=== PATIENT | male | born 1985 | race Two or more races ===

== ENCOUNTER 2024-07-18 16:45 | Inpatient (IN) | payer MEDICAID, OTHER ==
[~2024-07-18] VITALS: Ht 177.8 cm; Wt 91.8 kg
[2024-07-18 17:39] LABS: Alanine Aminotransferase 29 U/L (7-40); Alkaline Phosphatase 103 U/L (46-116); Anion Gap 9 (5-15); Aspartate Aminotransferase 22 U/L (13-40); BUN/Creatinine Ratio 12.7 (10.0-20.0); Bilirubin, Total 0.4 mg/dL (0.2-1.0); Blood Urea Nitrogen 10 mg/dL (9-23); CRP High Sensitivity 0.92 mg/dL (<1.0); Calcium 10.3 mg/dL (8.7-10.4); Carbon Dioxide 26 mmol/L (20-31); Chloride 104 mmol/L (98-107); Glucose 88 mg/dL (74-106); Potassium 4.2 mmol/L (3.5-5.1); Sodium 139 mmol/L (136-145); Total Protein 7.9 g/dL (5.7-8.2)
[2024-07-18 17:53] LABS: Basophils # (auto) 0 10 ^3/uL (0-0.2); Basophils % (auto) 0.6 % (0.0-2.0); Eosinophils # (auto) 0.4 10 ^3/uL (0-0.8); Eosinophils % (auto) 4.7 % (0.0-7.0); Hematocrit 46.9 % (41.0-53.0); Hemoglobin 15.9 g/dL (13.5-17.5); Lymphocytes % (auto) 25.1 % (10.0-50.0); Mean Corpuscular Hemoglobin 30.8 pg (28.0-32.0); Mean Corpuscular Hgb Conc. 33.9 g/dL (32.0-36.0); Mean Corpuscular Volume 90.8 fL (80.0-100.0); Monocytes # (auto) 0.4 10 ^3/uL (0-1.3); Monocytes % (auto) 5.5 % (0.0-12.0); Neutrophils % (auto) 64.1 % (37.0-80.0); Platelet Count (auto) 297 10^3/uL (140-450); Red Blood Cells 5.17 10^6/uL (4.5-5.90); Red Cell Distribution Width 13.9 % (11.8-14.3); White Blood Cell 7.8 10^3/uL (4.4-10.8)
[2024-07-18 18:15] LABS: Albumin 4.8 g/dL (3.2-4.8)
--- NOTE | 2024-07-18 18:36 | ED.PDOC ---
Musculoskeletal HPI Comments PMHx:Denies Any SHx: Denies Any HPI: Poor Historian. 39-year-old male sent from urgent Care for evaluation of bilateral lower extremity cellulitis for at least one-week. Patient states it has been itchy. This started at the dorsal aspect of bilateral toes and then spread upward above his ankle. There is diffuse generalized erythema. Patient states he has his she is sometimes. Denies any pain fever. Denies any recent use of antibiotics in the last three months. Past Medical History: Alcohol abuse currently in rehab. Past Surgical History: Denies any REVIEW OF SYSTEMS: CONSTITUTIONAL: Denies acute: fever, diaphoresis, chills, generalized weakness. HEAD: Denies acute: headache, photophobia Eyes: Denies acute: Double vision, vision loss, eye pain, eye discharge. EARS: Denies acute: tinnitus, hearing loss, ear discharge, ear pain, THROAT: Denies acute: sore throat, swelling, difficulty swallowing , pain with swallowing, change in voice. NECK: Denies acute: neck pain, neck swelling, stiff neck. HEART: Denies acute : chest pain, palpitations, LUNGS: Denies acute: SOB, wheezing, cough, hemoptysis ABDOMEN: Denies acute: abdominal pain, Nausea, Vomiting, diarrhea, melena , hematemesis, hematochezia SKIN: Denies acute: EXTREMITIES: Denies acute: calf pain, numbness, tingling, weakness, denies pain in extremity. Denies acute: Low back pain. Neuro: Denies acute: focal neurological deficit, motor or sensory focal neurological deficit, tremors, seizure like activity, confusion, dizziness, change in mental status, loss of bowel or bladder function, cauda equina like symptoms. : Denies acute: dysuria, hematuria, flank pain, increase in urinary frequency. PSYCH: Denies acute: hallucination, suicidal ideation, homicidal ideation. PHYSICAL EXAM: General: ---smile-----acute distress, awake and alert. Head: normocephalic, atraumatic. Neck: supple, trachea is midline, no swelling. Throat: Normal phonation. Eyes:, no erythema, no purulent discharge, no proptosis, no icterus. Heart: regular rate, regular rhythm, no significant murmur appreciated. Lungs: no apparent respiratory distress, Able to speak in full sentences. No wheezing, no rhonchi, no crackles. No stridors Clear to auscultation bilaterally. Abdomen: non tender to palpation, non distended, soft, no guarding, no rebound, + bowel sounds. Neuro: Awake, Alert, oriented to name, self, situation, follows commands GCS=15. Speech is normal. Skin: no petechia, no purpura, no cyanosis, non-pale, not jaundice. Lower extremities: --no - Pitting edema no deformity, no focal swelling, no calf TTP. Makes eye contact. moves all four extremities. Evaluation of bilateral feet ankles with the area of complaint is. There is noted bilateral erythema diffusely. Pedal pulses palpable. Sensory and motor are present. Patient is neurovascularly intact in the affected extremity. There is noted peeling of skin. Patient denies any history of burn or injury or trauma. Face: no apparent facial droop. Ambulating in the ED independently. Pedal pulses are palpable. ED COURSE: Chief Complaint: Cellulitis Time Seen by MD: 18:30 Reviewed Notes: Nurses Notes, Allergies Allergies: Coded Allergies: Penicillins (Verified Allergy, Unknown, 07/18/24) Information Source: Patient Mode of Arrival: Ambulatory Location: Bilateral (pedals) Past Medical History PAST MEDICAL HISTORY: Denies Surgical History: Denies all surgeries Family History Family History: Reviewed,noncontributory to illness, Unknown Social History Smoker: Non-Smoker Alcohol: Sober (25 days) Drugs: Denies Drug Use Lives In: Home Was a procedure done? Was a procedure done?: No Differential Diagnosis EXT Differential Diagnosis: Cellulitis, CHF, Deep Vein Thrombosis, Compartment Syndrome, Fracture, Sprain, Neurovascular injury, Arthritis, Bursitis, Other (Mark Tommie syndrome, toxic shock, severe Staphylococcus scaling infection) X-Ray, Labs, Meds, VS Vital Signs Date Time Temp Pulse Resp B/P (MAP) Pulse Ox O2 Delivery O2 Flow Rate FiO2 07/18/24 19:25 76 18 98 Room Air* 0 21 07/18/24 19:25 98.5 76 18 142/102 (115) 98 98.5 07/18/24 17:38 98.9 75 19 143/96 (112) 100 98.9 Lab Test 07/18/24 17:06 07/18/24 16:56 Range/Units White Blood Count 7.8 4.4-10.8 10^3/uL Red Blood Count 5.17 4.5-5.90 10^6/uL Hemoglobin 15.9 13.5-17.5 g/dL Hematocrit 46.9 41.0-53.0 % Mean Corpuscular Volume 90.8 80.0-100.0 fL Mean Corpuscular Hemoglobin 30.8 28.0-32.0 pg Mean Corpuscular Hemoglobin Concent 33.9 32.0-36.0 g/dL Red Cell Distribution Width 13.9 11.8-14.3 % Platelet Count 297 140-450 10^3/uL Mean Platelet Volume 8.6 6.9-10.8 fL Neutrophils (%) (Auto) 64.1 37.0-80.0 % Lymphocytes (%) (Auto) 25.1 10.0-50.0 % Monocytes (%) (Auto) 5.5 0.0-12.0 % Eosinophils (%) (Auto) 4.7 0.0-7.0 % Basophils (%) (Auto) 0.6 0.0-2.0 % Neutrophils # (Auto) 5.0 1.6-8.6 10 ^3/uL Lymphocytes # (Auto) 2.0 0.4-5.4 10 ^3/uL Monocytes # (Auto) 0.4 0-1.3 10 ^3/uL Eosinophils # (Auto) 0.4 0-0.8 10 ^3/uL Basophils # (Auto) 0 0-0.2 10 ^3/uL Nucleated Red Blood Cells 0.0 % Erythrocyte Sedimentation Rate 21 H 0-20 mm/hr Sodium Level 139 136-145 mmol/L Potassium Level 4.2 3.5-5.1 mmol/L Chloride Level 104 98-107 mmol/L Carbon Dioxide Level 26 20-31 mmol/L Anion Gap 9 5-15 Blood Urea Nitrogen 10 9-23 mg/dL Creatinine 0.79 0.700-1.30 mg/dL Glomerular Filtration Rate Calc 114 >90 mL/min BUN/Creatinine Ratio 12.7 10.0-20.0 Serum Glucose 88 74-106 mg/dL Hemoglobin A1c Pending Calcium Level 10.3 8.7-10.4 mg/dL Magnesium Level Pending Total Bilirubin 0.4 0.2-1.0 mg/dL Aspartate Amino Transferase (AST) 22 13-40 U/L Alanine Aminotransferase (ALT) 29 7-40 U/L Alkaline Phosphatase 103 46-116 U/L Troponin I High Sensitivity Pending C-Reactive Protein High Sensitivity 0.92 <1.0 mg/dL B-Type Natriuretic Peptide 14.40 0-100 pg/mL Total Protein 7.9 5.7-8.2 g/dL Albumin 4.8 3.2-4.8 g/dL Vitamin B12 Level Pending Vitamin D 25-Hydroxy Pending Thyroid Stimulating Hormone (TSH) Pending Lactic Acid Level 0.8 0.4-2.0 mmol/L Current Medications Medications (Trade) Dose Ordered Sig/Mikel Route Start Time Stop Time Status Last Admin Clindamycin Phosphate 50 ml @ 50 mls/hr ONCE ONCE IV 07/18/24 18:45 07/18/24 19:44 DC 07/18/24 19:40 Methylprednisolone Sodium Succinate (Solu Medrol) 125 mg ONCE ONCE IV 07/18/24 18:45 07/18/24 18:46 DC 07/18/24 19:40 Sodium Chloride 1,000 ml @ 1,000 mls/hr Q1H ONCE IV 07/18/24 18:45 07/18/24 19:44 DC 07/18/24 19:39 [place] [id number] Ph: [phone] DIAGNOSTIC IMAGING Diagnostic Imaging Report : [id number] Signed PATIENT: MEGGAN JAMES ACCT: [id number] UNIT: [id number] : 1985 LOC: ER ROOM / BED: / AGE / SEX: 39 / M ADM STATUS: REG ER SERVICE [id number] ORDERING PHYSICIAN: TABATHA MARSHALL DO PROCEDURE(s): BLDVT - BiLat Lower DVT REASON: Redness swelling ORDER NUMBER(s): [id number], ACCESSION NUMBER(s): [id number] BILATERAL LOWER EXTREMITY VENOUS DOPPLER ULTRASOUND CLINICAL HISTORY: Redness swelling TECHNIQUE: Grayscale ultrasound with compression, color Doppler flow imaging with pulsed duplex sonography of the bilateral lower extremity deep venous sy stem from the common femoral veins through the popliteal veins is performed. COMPARISON: None FINDINGS: Right common femoral vein: Negative. Right greater saphenous vein: Negative. Right deep femoral vein: Negative. Right femoral vein: Negative. Right popliteal vein: Negative. Left common femoral vein: Negative. Left greater saphenous vein: Negative. Left deep femoral vein: Negative. Left femoral vein: Negative. Left popliteal vein: Negative. Other: Visualized bilateral popliteal trifurcation and posterior tibial veins demonstrate color flow. Enlarged bilateral inguinal lymph nodes noted. IMPRESSION: No sonographic evidence of deep venous thrombosis in either lower extremity at this time. Inguinal adenopathy. ATED BY: SOTO INMAN MD DICTATED DATE/TIME: 07/18/241920 SIGNED BY: SOTO INMAN MD SIGNED DATE/TIME: 07/18/241920 CC: Time of 1ST Reevaluation: 19:00 Reevaluation 1ST: Unchanged Patient Education/Counseling: Diagnosis, Treatment Family Education/Counseling: No Family Present Comments Patient presented with the above HPI.---bilateral distal leg rash---workup was initiated. patient was found with the above mentioned diagnosis. the following medications were ordered: please refer to order lists of meds and tests obtained by myself Dr. Marshall. Patient ED course and VS have been stabilized. Patient has been reassessed in the ED and remained in a stable condition. Pertinent incidental findings were discussed with the patient and/or family. Patient/family voices understanding and is agreeable with plan. Patient has been observed in the ED adequate length of time to insure improvement/stability. Escalation of care considered: Consideration of escalation to observation or admission Patient was ADMITTED to the medicine team for further evaluation and treatment of their presentation. All the son shows inguinal adenopathy likely consistent with infectious process in the distal extremities. All the reports of any imaging studies that were ordered by myself were reviewed by myself. Departure 1 Departure Time of Disposition: 19:00 Impression: Primary Impression: Bilateral lower leg cellulitis Disposition: ADMITTED INPATIENT Admit to: Tele Condition: Guarded Discharged With: Self Critical Care Note Critical Care Time?: No I personally scribed for TABATHA MARSHALL DO ([email or web address]) on 07/18/24 at 18:36. Electronically submitted by Abraham Ansari ([email or web address]). TABATHA MARSHALL DO Jul 18, 2024 18:36
[2024-07-18 18:53] LABS: Erythrocyte Sedimentation Rate 21 mm/hr (0-20)
--- NOTE | 2024-07-18 19:24 | DVH ---
BILATERAL LOWER EXTREMITY VENOUS DOPPLER ULTRASOUND CLINICAL HISTORY: Redness swelling TECHNIQUE: Grayscale ultrasound with compression, color Doppler flow imaging with pulsed duplex sonog vanessa of the bilateral lower extremity deep venous system from the common femoral veins through the p opliteal veins is performed. COMPARISON: None FINDINGS: Right common femoral vein: Negative. Right greater saphenous vein: Negative. Right deep femoral vein: Negative. Right femoral vein: Negative. Right popliteal vein: Negative. Left common femoral vein: Negative. Left greater saphenous vein: Negative. Left deep femoral vein: Negative. Left femoral vein: Negative. Left popliteal vein: Negative. Other: Visualized bilateral popliteal trifurcation and posterior tibial veins demonstrate color flow. Enlarged bilateral inguinal lymph nodes noted. IMPRESSION: No sonographic evidence of deep venous thrombosis in either lower extremity at this time. Inguinal adenopathy.
[2024-07-18 19:25] VITALS: PULSE 76; RESP 18; O2SAT 98
[2024-07-18] MEDS: SODIUM CHLORIDE 0.9% 1,000 ML IV ONE ×2 (19:39→21:31)
[2024-07-18] MEDS: methylPREDNISolone SOD SUCC 125 MG/2 ML VL IV ONE (19:40)
[2024-07-18] MEDS: CLINDAMYCIN 600MG IV 50 ML IV ONE (19:40)
--- NOTE | 2024-07-18 21:17 | DVHHPRES ---
History of Present Illness Resident Creating Document: RADHA CARTER RESIDENT History of Present Illness Mr. Brooks is a 39-year-old male with past medical history of hypertension, not on any medications, who does not have a PCP, presented to the ER with a chief complaint of bilateral lower extremity rash, swelling and purulent drainage for the past 10 days. Patient recently moved to [facility] in in [place] back and shares a bathroom with 10 other male individuals. Reports noticing bilateral lower extremity toe rash while showering, patient used some antifungal ointment which did not help him. Associated features include itching, later patient reported that the rash progressed to the ankles bilaterally associated with intense pruritus and started to drain on the dorsal surface of bilateral feet. He denied pain in lower extremity. Patient denies fevers, chills, shortness of breath, chest pain, nausea or vomiting. Past medical history: Hypertension Home medications: None Social history: Lives in alcoholic rehab. Smokes vape, previously used cigarettes for the past 10 years, , heavy drinker for the past 10 years - drank 6-12 beers a day, sober for the past 25 days. reports using cocaine PCP: None Patient seen and examined in the ER. Bilateral foot x-ray ordered. IV vanc and cefepime Smoke: <1 pack per day ALCOHOL: heavy Drugs: Cocaine Lives: Other (rehab) Review of Systems Musculoskeletal: foot pain Skin: Rash, Lesions Allergies: Coded Allergies: Penicillins (Verified Allergy, Unknown, 07/18/24) Exam Vital Signs Vital Signs Date Time Temp Pulse Resp B/P (MAP) Pulse Ox O2 Delivery O2 Flow Rate FiO2 07/18/24 19:25 76 18 98 Room Air* 0 21 07/18/24 19:25 98.5 142/102 (115) 98.5 Exam Young male patient lying in bed, in no acute distress General: Overweight, afebrile, palor, mucosae are moist Cardiovascular: Regular S1 and S2. No murmurs, gallops or rubs. No JVD elevation. No pedal edema Respiratory: Normal B/L air entry on room air. Clear lung sounds on auscultation Abdomen: Soft, nontender, nondistended, normoactive bowel sounds, no rebound tenderness, no organomegaly, no masses. Right upper chest has maculopapular rash Genitourinary: Deferred MSK/skin: Mobilizes 4 limbs. Bilateral lower extremity are warm. Petechial rash seen in bilateral feet going towards ankle. Right dorsum of the feet is swollen, erythematous draining purulent substance. Bilateral hands are erythematous. Neurological: No motor, no sensitive deficits, normal speech. Pupils are isocoric and reactive. Psych/Mental Status: A/Ox3 Labs/Xrays Labs Test 07/18/24 17:06 07/18/24 16:56 Range/Units White Blood Count 7.8 4.4-10.8 10^3/uL Red Blood Count 5.17 4.5-5.90 10^6/uL Hemoglobin 15.9 13.5-17.5 g/dL Hematocrit 46.9 41.0-53.0 % Mean Corpuscular Volume 90.8 80.0-100.0 fL Mean Corpuscular Hemoglobin 30.8 28.0-32.0 pg Mean Corpuscular Hemoglobin Concent 33.9 32.0-36.0 g/dL Red Cell Distribution Width 13.9 11.8-14.3 % Platelet Count 297 140-450 10^3/uL Mean Platelet Volume 8.6 6.9-10.8 fL Neutrophils (%) (Auto) 64.1 37.0-80.0 % Lymphocytes (%) (Auto) 25.1 10.0-50.0 % Monocytes (%) (Auto) 5.5 0.0-12.0 % Eosinophils (%) (Auto) 4.7 0.0-7.0 % Basophils (%) (Auto) 0.6 0.0-2.0 % Neutrophils # (Auto) 5.0 1.6-8.6 10 ^3/uL Lymphocytes # (Auto) 2.0 0.4-5.4 10 ^3/uL Monocytes # (Auto) 0.4 0-1.3 10 ^3/uL Eosinophils # (Auto) 0.4 0-0.8 10 ^3/uL Basophils # (Auto) 0 0-0.2 10 ^3/uL Nucleated Red Blood Cells 0.0 % Erythrocyte Sedimentation Rate 21 H 0-20 mm/hr Sodium Level 139 136-145 mmol/L Potassium Level 4.2 3.5-5.1 mmol/L Chloride Level 104 98-107 mmol/L Carbon Dioxide Level 26 20-31 mmol/L Anion Gap 9 5-15 Blood Urea Nitrogen 10 9-23 mg/dL Creatinine 0.79 0.700-1.30 mg/dL Glomerular Filtration Rate Calc 114 >90 mL/min BUN/Creatinine Ratio 12.7 10.0-20.0 Serum Glucose 88 74-106 mg/dL Calcium Level 10.3 8.7-10.4 mg/dL Total Bilirubin 0.4 0.2-1.0 mg/dL Aspartate Amino Transferase (AST) 22 13-40 U/L Alanine Aminotransferase (ALT) 29 7-40 U/L Alkaline Phosphatase 103 46-116 U/L C-Reactive Protein High Sensitivity 0.92 <1.0 mg/dL B-Type Natriuretic Peptide 14.40 0-100 pg/mL Total Protein 7.9 5.7-8.2 g/dL Albumin 4.8 3.2-4.8 g/dL Lactic Acid Level 0.8 0.4-2.0 mmol/L Assessment/Plan Assessment/Plan RLE purulent celluliltis Petechial rash Chronic Alcoholic dependence Nicotine dependence Vitamin-D deficiency Left foot x-ray shows No acute fracture or dislocation. Mild diffuse soft tissue edema. Left foot demonstrates a small inferior calcaneal enthesophyte. No radiopaque foreign objects. No significant degenerative changes. Right foot x-ray shows Unremarkable radiographs of the right foot. Swelling. Lower Extremity Doppler unremarkable for DVT Lower extremity arterial ultrasound shows No hemodynamically significant stenoses or occlusions identified. Liver ultrasound unremarkable Plan: IV fluids, IV cefepime, IV vancomycin starting 07/18 Wound care, wound consultation, podiatry consultation pending HIV, hepatitis panel pending given history of drug use Thiamine and folic acid supplemented CAROLYNE panel pending Vitamin-D supplemented loan services professional consulted for the need of PCP Lovenox 40 mg sc daily Plan discussed with patient in which all questions have been answered Goals of care discussed for more than 20 minutes, full code status Case discussed with Dr. Sanford Plan discussed with: Patient My Orders Orders - RADHA CARTER RESIDENT Procedure Category Date Status Time Admit ADMIT 07/18/24 Transmitted 20:56 Electrocardigram EKG 07/18/24 Transmitted 20:56 Complete Blood Count LAB 07/19/24 Verified 04:00 Comprehensive LAB 07/19/24 Verified Metabolic Panel 04:00 Drug Screen LAB 07/18/24 Transmitted 20:56 Hemoglobin A1c LAB 07/18/24 Verified 20:56 Magnesium LAB 07/18/24 Verified 20:56 PTPTT LAB 07/18/24 Verified 20:56 Thyroid Stimulating LAB 07/18/24 Verified Hormone 20:56 Urinalysis LAB 07/18/24 Verified 20:56 Vitamin B12 LAB 07/18/24 Verified 20:56 Vitamin D, 25-Hydroxy LAB 07/18/24 Verified 20:56 Blood Alcohol LAB 07/18/24 Transmitted 20:56 Bilat Low Ext Art US 07/18/24 Verified Duplex 20:56 B-Type Natriuretic LAB 07/18/24 Transmitted Peptide 20:56 Troponin-I Hs LAB 07/18/24 Transmitted 20:56 Lactic Acid W/ Reflex LAB 07/18/24 Transmitted Order 20:56 *Podiatry Consult CONS 07/18/24 Verified Musson(Dvmg) 20:56 * Wound Consult CONS 07/18/24 Verified Wound Culture W/ Gs CLAYTON 07/18/24 Transmitted 20:56 Cleanse Wound With Ns KACIE 07/18/24 Verified 20:56 Cleanse Wound W/ KACIE 07/18/24 Verified Sterile Gauze 20:56 NS PHA 07/18/24 Verified 21:00 Carolyne; Direct LAB 07/18/24 Transmitted 20:56 LIVER US 07/18/24 Verified 20:56 Uric Acid LAB 07/18/24 Transmitted 20:56 Comprehensive LAB 07/18/24 Transmitted Hepatitis Panel 20:56 Acute Hepatitis Panel LAB 07/18/24 Transmitted 20:56 Hiv 1&2 Antibody LAB 07/18/24 Transmitted 20:56 Date of Service: Jul 18, 2024 Billing Provider: ABDELRAHMAN SANFORD MD Common Visit Codes: [id number] INP/OBS CARE (HIGH) RADHA CARTER RESIDENT Jul 18, 2024 21:17
[2024-07-18] MEDS ORDERED: VANCOMYCIN PER PHARMACY 0 MG IV SCH (21:30)
--- NOTE | 2024-07-18 21:51 | DVH ---
BILATERAL LOWER EXTREMITY ARTERIAL VASCULAR ULTRASOUND CLINICAL HISTORY: Discoloration and wounds. Evaluate for PAD. COMPARISON: None TECHNIQUE: Real-time high-resolution grayscale and color Doppler flow imaging with pulsed duplex sono graphy is performed in the lower extremity arterial system with imaging of the femoral-popliteal syst em and interrogation of the dorsalis pedis and posterior tibial arteries at the level of the ankle. FINDINGS: Imaging of the right leg shows no significant atherosclerotic disease and no hemodynamically signific ant stenosis. Peak systolic flow velocities and wave forms are satisfactory throughout the interroga anita segments. Imaging of the left leg shows no significant atherosclerotic disease and no hemodynamically significa nt stenosis. Peak systolic flow velocities and wave forms are satisfactory throughout the interrogat ed segments. IMPRESSION: No hemodynamically significant stenoses or occlusions identified.
[2024-07-18 22:00] VITALS: BP 138/71; PULSE 78; RESP 18; TEMP 98.6; O2SAT 98
[2024-07-18 22:03] LABS: Uric Acid 5.6 mg/dL (3.7-9.2)
--- NOTE | 2024-07-18 22:03 | DVH ---
INDICATION: alcoholic TECHNIQUE: Multiple real-time sonographic images were obtained of the right upper quadrant. COMPARISON: None FINDINGS: The liver demonstrates homogenous echotexture without focal mass lesions. The liver measure s 14cm. There is no intrahepatic or extrahepatic ductal dilatation. The common duct measures 0.5 m m. The gallbladder is without evidence of stone or sludge. The gallbladder wall measures 0.3 mm and is within normal limits. The right kidney measures 14 cm. The right kidney is normal in contour, size, and shape. The echogen icity is normal. There is no hydronephrosis. The pancreas is not well visualized due to overlying bowel gas. IMPRESSION: No sonographic evidence of gallstones or acute cholecystitis.
[2024-07-18 22:09] LABS: INR 0.97 (0.9-1.15); Partial Thromboplastin Time 28.7 SEC (24.5-34.5); Prothrombin Time 10.3 sec (9.3-11.8)
[2024-07-18 22:10] VITALS: PULSE 71; RESP 20; O2SAT 98
[2024-07-18] MEDS ORDERED: VANCOMYCIN 1GM/200ML PM 200 ML IV SCH (22:12)
--- NOTE | 2024-07-18 22:29 | DVH ---
EXAM: XY L FOOT 3 VIEW XRAY, XY R FOOT 3 VIEW XRAY HISTORY: Cellulitis COMPARISON: None TECHNIQUE: Multiple views of the bilateral feet. Findings/ IMPRESSION: No acute fracture or dislocation. Mild diffuse soft tissue edema. Left foot demonstrates a small infe rior calcaneal enthesophyte. No radiopaque foreign objects. No significant degenerative changes.
--- NOTE | 2024-07-18 22:29 | DVH ---
EXAM: XY R FOOT 3 VIEW XRAY HISTORY: Cellulitis COMPARISON: None TECHNIQUE: Three views of the right foot were performed. FINDINGS: No acute fracture or dislocation are identified about the right foot. No significant degenerative elizabeth nges. There soft tissue swelling involving the forefoot IMPRESSION: 1. Unremarkable radiographs of the right foot. Swelling.
[2024-07-18] MEDS: CEFEPIME 1GM/ 50ML 50 ML IV ONE (22:30)
[2024-07-19] VITALS (7 sets, daily range): BP systolic 102–135; BP diastolic 54–100; PULSE 55–79; RESP 16–20; TEMP 97.7–98.6; O2SAT 95–100
[2024-07-19] MEDS ORDERED: ACETAMINOPHEN 500 MG TAB or CAP PO PRN (01:00)
[2024-07-19] MEDS ORDERED: HYDROcodone-ACET 5/325MG TAB PO PRN (01:00)
[2024-07-19] MEDS ORDERED: MORPHINE SULFATE INJ 2 MG/ml SYRG IV PRN (01:00)
[2024-07-19 01:32] LABS: Urine Bacteria None Seen /hpf (None Seen)
[2024-07-19 01:40] LABS: Urine Blood Negative /uL (Negative); Urine Clarity Clear (Clear); Urine Color Light-Yellow (Yellow); Urine Protein, UAD Negative (Negative); Urine Specific Gravity 1.015 (1.001-1.035); Urine Squamous Epithelial Cell FEW /hpf (<5); Urine Urobilinogen Normal (Negative); Urine WBC 1 /HPF (0-3); Urine pH 6.5 (5.0-9.0)
[2024-07-19 01:57] LABS: Amphetamine Screen, Urine Neg (NEGATIVE); Barbiturate Scree,Urine Neg (NEGATIVE); Benzodiazephine Screen, Urine Neg (NEGATIVE); Cannabinoid Screen, Urine Neg (NEGATIVE); Cocaine Screen, Urine Neg (NEGATIVE); Opiate Scree,Urine Neg (NEGATIVE); Phencyclidine Screen, Urine Neg (NEGATIVE)
[2024-07-19] MEDS: VANCOMYCIN 1GM/200ML PM 200 ML IV SCH (02:43)
[2024-07-19] MEDS: THIAMINE 100mg/ml INJ (200mg/2ml VIAL) IV ONE (03:17)
[2024-07-19] MEDS: CYANOCOBALAMIN (B-12) 1000 MCG/1 ML VIAL IM ONE (03:23)
[2024-07-19] MEDS: CEFEPIME 1GM/ 50ML 50 ML IV SCH (05:48)
[2024-07-19 09:23] LABS: Basophils # (auto) 0 10 ^3/uL (0-0.2); Basophils % (auto) 0.3 % (0.0-2.0); Eosinophils # (auto) 0 10 ^3/uL (0-0.8); Hematocrit 42.3 % (41.0-53.0); Hemoglobin 14.3 g/dL (13.5-17.5); Lymphocytes # (auto) 1.3 10 ^3/uL (0.4-5.4); Lymphocytes % (auto) 14.6 % (10.0-50.0); Mean Corpuscular Hgb Conc. 33.7 g/dL (32.0-36.0); Mean Corpuscular Volume 91.8 fL (80.0-100.0); Monocytes # (auto) 0.3 10 ^3/uL (0-1.3); Monocytes % (auto) 3.7 % (0.0-12.0); Neutrophils # (auto) 7.1 10 ^3/uL (1.6-8.6); Neutrophils % (auto) 81.4 % (37.0-80.0); Platelet Count (auto) 280 10^3/uL (140-450); Red Blood Cells 4.61 10^6/uL (4.5-5.90); Red Cell Distribution Width 13.6 % (11.8-14.3); White Blood Cell 8.7 10^3/uL (4.4-10.8)
[2024-07-19 09:46] LABS: Alanine Aminotransferase 21 U/L (7-40); Albumin 4.2 g/dL (3.2-4.8); Alkaline Phosphatase 83 U/L (46-116); Anion Gap 8 (5-15); Aspartate Aminotransferase 15 U/L (13-40); Calcium 9.7 mg/dL (8.7-10.4); Carbon Dioxide 27 mmol/L (20-31); Chloride 104 mmol/L (98-107); Potassium 3.9 mmol/L (3.5-5.1); Sodium 139 mmol/L (136-145); Total Protein 7.1 g/dL (5.7-8.2)
[2024-07-19 09:47] LABS: Bilirubin, Total 0.5 mg/dL (0.2-1.0)
[2024-07-19 09:52] LABS: Blood Urea Nitrogen 9 mg/dL (9-23); Glucose 169 mg/dL (74-106)
[2024-07-19] MEDS: FOLIC ACID 1 MG TAB PO SCH (09:56)
[2024-07-19] MEDS: MULTIPLE VITAMIN TAB PO SCH (09:56)
[2024-07-19] MEDS: ERGOCALCIFEROL 50,000 UNIT(1.25MG) CAP PO SCH (09:57)
[2024-07-19] MEDS: THIAMINE HCL 100 MG TAB PO ONE (09:57)
[2024-07-19] MEDS: ENOXAPARIN SOD 40 MG/0.4 ML SYRINGE SC SCH (09:58)
[2024-07-19 10:19] LABS: Hepatitis B Core Total AB Negative (Negative)
[2024-07-19 10:57] LABS: Hepatitis B Surface Antigen Negative (Negative); Hepatitis C Antibody Negative (Negative)
[2024-07-19] MEDS: SODIUM CHLORIDE 0.9% 1,000 ML IV SCH (11:55)
[2024-07-19] MEDS: diphenhdrAMINE HCL 50 MG/1 ML VL IV PRN (12:09)
[2024-07-19] MEDS: VANCOMYCIN 1.5GM/300ML 300 ML IV SCH (12:46)
[2024-07-19 14:02] LABS: Hepatitis A Ab IgM Negative; Hepatitis A Total Antibody Positive (Negative); Hepatitis B Core IgM Negative (Negative); Hepatitis B Surface Antibody Negative (Negative); Hepatitis B Surface Antigen Negative (Negative); Hepatitis C Antibody Negative (Negative)
[2024-07-19 14:18] LABS: Erythrocyte Sedimentation Rate 22 mm/hr (0-20)
--- NOTE | 2024-07-19 17:22 | DVHPNRES ---
Progress Note Date Seen: Jul 19, 2024 Resident Creating Document: ANGEL LINDA RESIDENT Medical Necessity Reason Pt with a Central, PICC or Fol: No Subjective Review of Systems Mr. Brooks is a 39-year-old male with past medical history of hypertension, not on any medications, who does not have a PCP, presented to the ER with a chief complaint of bilateral lower extremity rash, swelling and purulent drainage for the past 10 days. Patient recently moved to [facility] in in [place] days back and shares a bathroom with 10 other male individuals. Reports noticing bilateral lower extremity toe rash while showering, patient used some antifungal ointment which did not help him. Associated features include itching, later patient reported that the rash progressed to the ankles bilaterally associated with intense pruritus and started to drain on the dorsal surface of bilateral feet. He denied pain in lower extremity. Patient denies fevers, chills, shortness of breath, chest pain, nausea or vomiting. Past medical history: Hypertension Home medications: None Social history: Lives in alcoholic rehab. Smokes vape, previously used cigarettes for the past 10 years, , heavy drinker for the past 10 years - drank 6-12 beers a day, sober for the past 25 days. reports using cocaine PCP: None Patient seen and examined in the ER. Bilateral foot x-ray ordered. IV vanc and cefepime Smoke: <1 pack per day ALCOHOL: heavy Drugs: Cocaine Lives: Other (rehab) Patient was seen today at the bedside. Cardiovascular- deny acute chest pain or shortness of breath or cough or palpitation Respiratory denies cough or short of breath or wheezing Gastrointestinal- denies any rectal bleeding, nausea or vomiting Musculoskeletal-denies acute joint swelling or tenderness or redness Neurological- denies acute dysarthria, dysphagia, change in vision Psychiatry- denies depression or SI or HI Skin- denies acute rash or purpura Patient was seen today for clinical evaluation. Labs and chart reviewed. Ordered ESR, CRP, CCC 4, HIV. We will continue with cefepime and vancomycin. Patient was thiamine and folic acid. Objective vital signs Vital Sign Date Time Temp Pulse Resp B/P (MAP) Pulse Ox O2 Delivery O2 Flow Rate FiO2 07/19/24 13:00 97.8 67 17 127/73 (91) 96 97.8 07/19/24 08:00 Room Air* 0 21 Total Intake and Output 07/18/24 07/18/24 07/19/24 15:00 23:00 07:00 Intake Total 1175 ml 12.5 ml Output Total 0 ml Balance 1175 ml 12.5 ml medications Current Medications Medications Dose Ordered Sig/Mikel Route Start Time Stop Time Status Last Admin Dose Admin Cefepime HCl 50 ml @ 12.5 mls/hr Q8HR IV 07/19/24 06:00 07/19/24 15:01 12.5 MLS/HR Vancomycin HCl 0 ml @ 0 mls/hr UD IV 07/18/24 21:30 Ergocalciferol 50,000 unit Q7D PO 07/19/24 10:00 07/19/24 09:57 50,000 UNIT Enoxaparin Sodium 40 mg DAILY SC 07/19/24 10:00 07/19/24 09:58 40 MG Folic Acid 1 mg DAILY PO 07/19/24 10:00 07/19/24 09:56 1 MG Multivitamins 1 tab DAILY PO 07/19/24 10:00 07/19/24 09:56 1 TAB Acetaminophen 500 mg Q4HPRN PRN PO 07/19/24 01:00 Acetaminophen/ Hydrocodone Bitart 1 tab Q4HPRN PRN PO 07/19/24 01:00 Morphine Sulfate 1 mg Q4HPRN PRN IV 07/19/24 01:00 Diphenhydramine HCl 25 mg Q6HP PRN IV 07/19/24 01:15 07/19/24 12:09 25 MG Thiamine HCl 100 mg DAILY PO 07/20/24 10:00 Sodium Chloride 1,000 ml @ 125 mls/hr Q8H IV 07/19/24 10:30 07/19/24 11:55 125 MLS/HR Vancomycin HCl 300 ml @ 200 mls/hr Q12H IV 07/19/24 13:00 07/19/24 12:46 200 MLS/HR Examination General examination- awake, alert, oriented, acute, lower extremity, bilateral upper back, lower back, part of the arm. HEENT- PEERLA, no acute nasal discharge Cardiovascular- S1-S2 audible, rate and rhythm regular, no murmur Respiratory- CTAB, no wheeze or rhonchi Gastrointestinal-nontender, bowel sound+. Nondistended Musculoskeletal-no acute joint swelling or tenderness or redness Lower extremity- bilateral lower extremity redness, warm, swelling, Neurological- cranial nerves intact, no acute dysarthria or dysphagia Psychiatry- denies depression or SI or HI Skin- no acute rash or purpura laboratory and microbiology Laboratory Tests 07/19/24 09:00 Test 07/19/24 09:00 Range/Units Serum Glucose 169 H 74-106 mg/dL Microbiology Date/Time Source Procedure Growth Status 07/18/24 23:00 Nose MRSA Screen - Final Complete 07/18/24 17:06 Blood Blood Culture - Preliminary NO GROWTH AFTER 24 HOURS OF INCUBATION. Resulted Problem List/Assessment/Plan Problem List/Assessment/Plan Assessment and plan Bilateral LE celluliltis Suspected purpuric rash Suspected vasculitis Chronic Alcoholic dependence Nicotine dependence Vitamin-D deficiency Left foot x-ray shows No acute fracture or dislocation. Mild diffuse soft tissue edema. Left foot demonstrates a small inferior calcaneal enthesophyte. No radiopaque foreign objects. No significant degenerative changes. Right foot x-ray shows Unremarkable radiographs of the right foot. Swelling. Lower Extremity Doppler unremarkable for DVT Lower extremity arterial ultrasound shows No hemodynamically significant stenoses or occlusions identified. Liver ultrasound unremarkable Plan: Continue IV fluids, IV cefepime, IV vancomycin starting 07/18 Wound care, wound consultation, podiatry consultation pending HIV, hepatitis panel pending given history of drug use Thiamine and folic acid supplemented ALMA DELIA panel pending Vitamin-D supplemented Pending HIV, C3-3 4, ESR, CRP, gonococcal and chlamydial test information services manager consulted for the need of PCP Goals of care, Code status ; discussed with >15 minutes PUD prophylaxis: DVT prophylaxis: Lovenox Plan discussed with Dr. Vences , nursing staff, Total time spent on patient evaluation, chart review, assessment and plan, discussion discussion >35 minutes Plan discussed with: Patient, Other (RN) My Orders My Orders Orders - ANGEL LINDA RESIDENT Procedure Category Date Status Time Thiamine Tab PHA 07/20/24 In Process 10:00 Sodium Chloride 0.9% PHA 07/19/24 In Process 10:30 Hiv 1&2 Antibody LAB 07/20/24 Verified 04:00 Complete Blood Count LAB 07/20/24 Verified 04:00 Comprehensive LAB 07/20/24 Verified Metabolic Panel 04:00 Complement C3 & C4 LAB 07/19/24 In Process 12:47 Cleanse Wound With Ns KACIE 07/19/24 In Process 11:42 ANGEL LINDA RESIDENT Jul 19, 2024 17:22
[2024-07-20 05:00] VITALS: BP 114/79; PULSE 68; RESP 18; TEMP 97.8; O2SAT 99
[2024-07-20 06:40] LABS: Basophils # (auto) 0.1 10 ^3/uL (0-0.2); Basophils % (auto) 0.9 % (0.0-2.0); Eosinophils # (auto) 0.3 10 ^3/uL (0-0.8); Eosinophils % (auto) 3.8 % (0.0-7.0); Hematocrit 46.5 % (41.0-53.0); Hemoglobin 15.6 g/dL (13.5-17.5); Lymphocytes # (auto) 2.9 10 ^3/uL (0.4-5.4); Lymphocytes % (auto) 36.6 % (10.0-50.0); Mean Corpuscular Hemoglobin 31.2 pg (28.0-32.0); Mean Corpuscular Hgb Conc. 33.5 g/dL (32.0-36.0); Mean Corpuscular Volume 93.2 fL (80.0-100.0); Monocytes # (auto) 0.5 10 ^3/uL (0-1.3); Monocytes % (auto) 6.1 % (0.0-12.0); Neutrophils # (auto) 4.2 10 ^3/uL (1.6-8.6); Neutrophils % (auto) 52.6 % (37.0-80.0); Nucleated Red Blood Cells % 0.1 %; Platelet Count (auto) 299 10^3/uL (140-450); Red Blood Cells 4.99 10^6/uL (4.5-5.90); Red Cell Distribution Width 14.1 % (11.8-14.3)
[2024-07-20 06:46] LABS: Alanine Aminotransferase 20 U/L (7-40); Albumin 4.4 g/dL (3.2-4.8); Alkaline Phosphatase 80 U/L (46-116); Anion Gap 7 (5-15); Aspartate Aminotransferase 13 U/L (13-40); BUN/Creatinine Ratio 10.8 (10.0-20.0); Bilirubin, Total 0.4 mg/dL (0.2-1.0); Calcium 9.9 mg/dL (8.7-10.4); Carbon Dioxide 26 mmol/L (20-31); Chloride 106 mmol/L (98-107); Glucose 86 mg/dL (74-106); Potassium 4.4 mmol/L (3.5-5.1); Sodium 139 mmol/L (136-145); Total Protein 7.4 g/dL (5.7-8.2)
[2024-07-20 06:52] LABS: Blood Urea Nitrogen 9 mg/dL (9-23)
[2024-07-20 08:06] LABS: Complement C3 135 mg/dL (82-167)
[2024-07-20 09:00] VITALS: BP 132/95; PULSE 69; RESP 18; TEMP 97.8; O2SAT 98
[2024-07-20] MEDS: THIAMINE HCL 100 MG TAB PO SCH (10:26)
[2024-07-20 12:07] LABS: Anti-Centromere B Antibody <0.2 AI (0.0-0.9); Anti-Jo-1 Antibody <0.2 AI (0.0-0.9); Anti-dsDNA Antibody <1 IU/mL (0-9); Antichromatin Antibody <0.2 AI (0.0-0.9); Antiscleroderma-70 Antibody <0.2 AI (0.0-0.9); RNP Antibody 0.3 AI (0.0-0.9); Sjogren's Anti-SS-A Antibody <0.2 AI (0.0-0.9); Sjogren's Anti-SS-B Antibody <0.2 AI (0.0-0.9); Smith Antibody <0.2 AI (0.0-0.9)
--- NOTE | 2024-07-20 14:26 | DVHPNRES ---
Progress Note Date Seen: Jul 20, 2024 Resident Creating Document: ANGEL LINDA RESIDENT Medical Necessity Reason Pt with a Central, PICC or Fol: No Subjective Review of Systems Mr. Brooks is a 39-year-old male with past medical history of hypertension, not on any medications, who does not have a PCP, presented to the ER with a chief complaint of bilateral lower extremity rash, swelling and purulent drainage for the past 10 days. Patient recently moved to [facility] in in [place] days back and shares a bathroom with 10 other male individuals. Reports noticing bilateral lower extremity toe rash while showering, patient used some antifungal ointment which did not help him. Associated features include itching, later patient reported that the rash progressed to the ankles bilaterally associated with intense pruritus and started to drain on the dorsal surface of bilateral feet. He denied pain in lower extremity. Patient denies fevers, chills, shortness of breath, chest pain, nausea or vomiting. Past medical history: Hypertension Home medications: None Social history: Lives in alcoholic rehab. Smokes vape, previously used cigarettes for the past 10 years, , heavy drinker for the past 10 years - drank 6-12 beers a day, sober for the past 25 days. reports using cocaine PCP: None Patient seen and examined in the ER. Bilateral foot x-ray ordered. IV vanc and cefepime Smoke: <1 pack per day ALCOHOL: heavy Drugs: Cocaine Lives: Other (rehab) Patient was seen today at the bedside. Cardiovascular- deny acute chest pain or shortness of breath or cough or palpitation Respiratory denies cough or short of breath or wheezing Gastrointestinal- denies any rectal bleeding, nausea or vomiting Musculoskeletal-denies acute joint swelling or tenderness or redness Neurological- denies acute dysarthria, dysphagia, change in vision Psychiatry- denies depression or SI or HI Skin- denies acute rash or purpura Patient was seen today for clinical evaluation. Labs and chart reviewed. CT 3, C4 with a normal limit, HIV negative, hepatitis-B denied negative, ALMA DELIA negative, Junie 1-, SSA, SSB with a normal limit, [employer] antibody with a normal limit, Scl 70 scleroderma antibody with a normal limit, WBC DNI antibody with a normal limit, chromatin antibody with a normal limit, centromere B antibody with a normal limit, HIV 1 and 2 negative. Patient's cellulitis improving, redness and swelling has improved. Plan is to continue current management. Objective vital signs Vital Sign Date Time Temp Pulse Resp B/P (MAP) Pulse Ox O2 Delivery O2 Flow Rate FiO2 07/20/24 09:00 97.8 69 18 132/95 (107) 98 97.8 07/20/24 08:00 Room Air* 0 21 Total Intake and Output 07/19/24 07/19/24 07/20/24 15:00 23:00 07:00 Intake Total 350 ml 350 ml 800 ml Balance 350 ml 350 ml 800 ml medications Current Medications Medications Dose Ordered Sig/Mkiel Route Start Time Stop Time Status Last Admin Dose Admin Cefepime HCl 50 ml @ 12.5 mls/hr Q8HR IV 07/19/24 06:00 07/20/24 06:27 12.5 MLS/HR Vancomycin HCl 0 ml @ 0 mls/hr UD IV 07/18/24 21:30 Ergocalciferol 50,000 unit Q7D PO 07/19/24 10:00 07/19/24 09:57 50,000 UNIT Enoxaparin Sodium 40 mg DAILY SC 07/19/24 10:00 07/20/24 10:27 40 MG Folic Acid 1 mg DAILY PO 07/19/24 10:00 07/20/24 10:26 1 MG Multivitamins 1 tab DAILY PO 07/19/24 10:00 07/20/24 10:25 1 TAB Acetaminophen 500 mg Q4HPRN PRN PO 07/19/24 01:00 Acetaminophen/ Hydrocodone Bitart 1 tab Q4HPRN PRN PO 07/19/24 01:00 Morphine Sulfate 1 mg Q4HPRN PRN IV 07/19/24 01:00 Diphenhydramine HCl 25 mg Q6HP PRN IV 07/19/24 01:15 07/19/24 12:09 25 MG Thiamine HCl 100 mg DAILY PO 07/20/24 10:00 07/20/24 10:26 100 MG Sodium Chloride 1,000 ml @ 125 mls/hr Q8H IV 07/19/24 10:30 07/19/24 18:54 125 MLS/HR Vancomycin HCl 300 ml @ 200 mls/hr Q12H IV 07/19/24 13:00 07/20/24 01:29 200 MLS/HR Examination General examination- awake, alert, oriented, acute, lower extremity, bilateral upper back, lower back, part of the arm. HEENT- PEERLA, no acute nasal discharge Cardiovascular- S1-S2 audible, rate and rhythm regular, no murmur Respiratory- CTAB, no wheeze or rhonchi Gastrointestinal-nontender, bowel sound+. Nondistended Musculoskeletal-no acute joint swelling or tenderness or redness Lower extremity- bilateral lower extremity redness, warm, swelling, Neurological- cranial nerves intact, no acute dysarthria or dysphagia Psychiatry- denies depression or SI or HI Skin- no acute rash or purpura laboratory and microbiology Laboratory Tests 07/20/24 11:53 07/20/24 05:42 Test 07/20/24 05:42 Range/Units Serum Glucose 86 74-106 mg/dL Microbiology Date/Time Source Procedure Growth Status 07/18/24 23:00 Nose MRSA Screen - Final Complete 07/18/24 17:06 Blood Blood Culture - Preliminary NO GROWTH AFTER 24 HOURS OF INCUBATION. Resulted Problem List/Assessment/Plan Problem List/Assessment/Plan Assessment and plan-patient with a bilateral lower extremity rash with the cellulitis. CT 3, C4 with a normal limit, HIV negative, hepatitis-B denied negative, ALMA DELIA negative, Junie 1-, SSA, SSB with a normal limit, [employer] antibody with a normal limit, Scl 70 scleroderma antibody with a normal limit, WBC DNAse antibody with in normal limit, chromatin antibody with a normal limit, c entromere B antibody with a normal limit, HIV 1 and 2 negative. Patient's cellulitis improving, redness and swelling has improved. Plan is to continue current management. Bilateral LE celluliltis Suspected purpuric rash Suspected vasculitis Chronic Alcoholic dependence Nicotine dependence Vitamin-D deficiency Left foot x-ray shows No acute fracture or dislocation. Mild diffuse soft tissue edema. Left foot demonstrates a small inferior calcaneal enthesophyte. No radiopaque foreign objects. No significant degenerative changes. Right foot x-ray shows Unremarkable radiographs of the right foot. Swelling. Lower Extremity Doppler unremarkable for DVT Lower extremity arterial ultrasound shows No hemodynamically significant stenoses or occlusions identified. Liver ultrasound unremarkable CT 3, C4 with a normal limit, HIV negative, hepatitis-B denied negative, ALMA DELIA negative, Junie 1-, SSA, SSB with a normal limit, [employer] antibody with a normal limit, Scl 70 scleroderma antibody with a normal limit, WBC DNI antibody with a normal limit, chromatin antibody with a normal limit, centromere B antibody with a normal limit, HIV 1 and 2 negative. Plan: Continue IV cefepime, IV vancomycin starting 07/18 Wound care, wound consultation, podiatry consultation pending HIV, hepatitis panel pending given history of drug use Thiamine and folic acid supplemented ALMA DELIA panel pending Vitamin-D supplemented Pending gonococcal and chlamydial test Blood culture negative so far MRSA screening negative medical staff services manager consulted for the need of PCP Goals of care, Code status ; discussed with >15 minutes PUD prophylaxis: DVT prophylaxis: Lovenox Plan discussed with Dr. Vences , nursing staff, Total time spent on patient evaluation, chart review, assessment and plan, discussion discussion >30 minutes Plan discussed with: Patient, Other (RN) My Orders My Orders Orders - ANGEL LINDA Procedure Category Date Status Time Cleanse Wound With Ns KACIE 07/19/24 In Process 11:42 ANGEL LINDA Jul 20, 2024 14:26
[2024-07-20 21:00] VITALS: BP 142/89; PULSE 95; RESP 17; TEMP 98.5; O2SAT 98
[2024-07-21 01:00] VITALS: BP 131/79; PULSE 85; RESP 17; TEMP 98.1; O2SAT 96
[2024-07-21 05:00] VITALS: BP 117/78; PULSE 78; RESP 17; TEMP 98; O2SAT 97
[2024-07-21 08:42] LABS: Calcium 9.9 mg/dL (8.7-10.4); Chloride 106 mmol/L (98-107); Potassium 4.3 mmol/L (3.5-5.1); Sodium 140 mmol/L (136-145)
[2024-07-21 08:43] LABS: Anion Gap 9 (5-15); Carbon Dioxide 25 mmol/L (20-31)
[2024-07-21 08:49] LABS: BUN/Creatinine Ratio 11.4 (10.0-20.0); Blood Urea Nitrogen 10 mg/dL (9-23); Glucose 88 mg/dL (74-106)
[2024-07-21 09:00] VITALS: BP 129/76; PULSE 70; RESP 18; TEMP 97.9; O2SAT 100
[2024-07-21 17:00] VITALS: BP 133/92; PULSE 103; RESP 18; TEMP 98; O2SAT 96
--- NOTE | 2024-07-21 17:00 | DVHPNRES ---
Progress Note Date Seen: Jul 21, 2024 Resident Creating Document: ALONA ALEXANDER JERRY Has the PT tested + for MRSA If YES, has PT been informed?: No Medical Necessity Reason Pt with a Central, PICC or Fol: No Subjective Review of Systems Patient seen at bedside. Patient is feeling better since admission. Objective vital signs Vital Sign Date Time Temp Pulse Resp B/P (MAP) Pulse Ox O2 Delivery O2 Flow Rate FiO2 07/21/24 09:00 97.9 70 18 129/76 (93) 100 97.9 07/21/24 08:00 Room Air* 0 21 Total Intake and Output 07/20/24 07/20/24 07/21/24 15:00 23:00 07:00 Intake Total 780 ml 1330 ml 400 ml Balance 780 ml 1330 ml 400 ml medications Current Medications Medications Dose Ordered Sig/Mikel Route Start Time Stop Time Status Last Admin Dose Admin Cefepime HCl 50 ml @ 12.5 mls/hr Q8HR IV 07/19/24 06:00 07/21/24 14:00 12.5 MLS/HR Vancomycin HCl 0 ml @ 0 mls/hr UD IV 07/18/24 21:30 Cancel Ergocalciferol 50,000 unit Q7D PO 07/19/24 10:00 07/19/24 09:57 50,000 UNIT Enoxaparin Sodium 40 mg DAILY SC 07/19/24 10:00 07/20/24 10:27 40 MG Folic Acid 1 mg DAILY PO 07/19/24 10:00 07/21/24 08:56 1 MG Multivitamins 1 tab DAILY PO 07/19/24 10:00 07/21/24 08:56 1 TAB Acetaminophen 500 mg Q4HPRN PRN PO 07/19/24 01:00 Acetaminophen/ Hydrocodone Bitart 1 tab Q4HPRN PRN PO 07/19/24 01:00 Morphine Sulfate 1 mg Q4HPRN PRN IV 07/19/24 01:00 Diphenhydramine HCl 25 mg Q6HP PRN IV 07/19/24 01:15 07/20/24 22:11 25 MG Thiamine HCl 100 mg DAILY PO 07/20/24 10:00 07/21/24 08:56 100 MG Examination General examination- awake, alert, oriented, acute, lower extremity, bilateral upper back, lower back, part of the arm. HEENT- PEERLA, no acute nasal discharge Cardiovascular- S1-S2 audible, rate and rhythm regular, no murmur Respiratory- CTAB, no wheeze or rhonchi Gastrointestinal-nontender, bowel sound+. Nondistended Musculoskeletal-no acute joint swelling or tenderness or redness Lower extremity- bilateral lower extremity redness, warm, swelling, Neurological- cranial nerves intact, no acute dysarthria or dysphagia Psychiatry- denies depression or SI or HI Skin- no acute rash or purpura laboratory and microbiology Laboratory Tests 07/21/24 07:48 07/20/24 05:42 Test 07/21/24 07:48 Range/Units Serum Glucose 88 74-106 mg/dL Microbiology Date/Time Source Procedure Growth Status 07/19/24 12:00 Foot Gram Stain - Final Resulted 07/19/24 12:00 Foot Wound Culture - Preliminary Resulted 07/18/24 17:06 Blood Blood Culture - Preliminary NO GROWTH AFTER 48 HOURS OF INCUBATION. Resulted Labs and/or images reviewed: Labs reviewed by me, Image(s) reviewed by me (RN) Problem List/Assessment/Plan Problem List/Assessment/Plan Assessment and plan-patient with a bilateral lower extremity rash with the cellulitis. CT 3, C4 with a normal limit, HIV negative, hepatitis-B denied negative, ALMA DELIA negative, Junie 1-, SSA, SSB with a normal limit, TOOTH GRINDER antibody with a normal limit, Scl 70 scleroderma antibody with a normal limit, WBC DNAse antibody with in normal limit, chromatin antibody with a normal limit, c entromere B antibody with a normal limit, HIV 1 and 2 negative. Patient's cellulitis improving, redness and swelling has improved. Plan is to continue current management. Bilateral LE celluliltis Suspected purpuric rash Suspected vasculitis Chronic Alcoholic dependence Nicotine dependence Vitamin-D deficiency Left foot x-ray shows No acute fracture or dislocation. Mild diffuse soft tissue edema. Left foot demonstrates a small inferior calcaneal enthesophyte. No radiopaque foreign objects. No significant degenerative changes. Right foot x-ray shows Unremarkable radiographs of the right foot. Swelling. Lower Extremity Doppler unremarkable for DVT Lower extremity arterial ultrasound shows No hemodynamically significant stenoses or occlusions identified. Liver ultrasound unremarkable CT 3, C4 with a normal limit, HIV negative, hepatitis-B denied negative, ALMA DELIA negative, Junie 1-, SSA, SSB with a normal limit, TOOTH GRINDER antibody with a normal limit, Scl 70 scleroderma antibody with a normal limit, WBC DNI antibody with a normal limit, chromatin antibody with a normal limit, centromere B antibody with a normal limit, HIV 1 and 2 negative. Plan: Continue IV cefepime, discontinued vancomycin Wound care, wound consultation, podiatry consultation pending HIV, hepatitis panel pending given history of drug use Thiamine and folic acid supplemented ALMA DELIA panel pending Vitamin-D supplemented Pending gonococcal and chlamydial test Blood culture negative so far MRSA screening negative client services specialist consulted for the need of PCP Goals of care, Code status ; discussed with >15 minutes ALMA DELIA panel is normal, C3 and C4 within normal limits, wound culture shows Gram- positive chain, antibiogram is pending. Podiatry evaluation is pending. PUD prophylaxis: DVT prophylaxis: Lovenox Plan discussed with Dr. Vences , nursing staff, Plan discussed with: Patient, Other (RN) Dietary Evaluation Review Recommendations by RD: Dietary education by RD Comments: 1) Continue thiamin and folic acid supplementation 2) Consider vitamin C @ 500 mg bid 3) Encourage optimal PO intake 4) Refer to outpatient RD for weight management 5) Follow-up with social welfare administrator regarding ETOH abuse 6) Continue to monitor I&O, labs, and skin integrity Expected Outcomes/Goals: 1) appetite and labs to improve 2) diet to advance 3) follow-up in 3-5 days ALONA ALEXANDER Jul 21, 2024 17:00
[2024-07-21 21:00] VITALS: BP 130/97; PULSE 96; RESP 16; TEMP 97.5; O2SAT 97
[2024-07-22] MEDS: PANTOPRAZOLE 40 MG/10 ML VIAL INJ IV ONE (06:38)
[2024-07-22 07:21] LABS: Basophils # (auto) 0.1 10 ^3/uL (0-0.2); Eosinophils # (auto) 0.5 10 ^3/uL (0-0.8); Eosinophils % (auto) 6.5 % (0.0-7.0); Lymphocytes # (auto) 2.6 10 ^3/uL (0.4-5.4); Lymphocytes % (auto) 34.8 % (10.0-50.0); Mean Corpuscular Hemoglobin 30.8 pg (28.0-32.0); Mean Corpuscular Hgb Conc. 33.2 g/dL (32.0-36.0); Mean Corpuscular Volume 92.6 fL (80.0-100.0); Monocytes # (auto) 0.7 10 ^3/uL (0-1.3); Monocytes % (auto) 8.9 % (0.0-12.0); Neutrophils # (auto) 3.6 10 ^3/uL (1.6-8.6); Neutrophils % (auto) 48.8 % (37.0-80.0); Platelet Count (auto) 314 10^3/uL (140-450); Red Blood Cells 5.51 10^6/uL (4.5-5.90); Red Cell Distribution Width 13.8 % (11.8-14.3); White Blood Cell 7.4 10^3/uL (4.4-10.8)
[2024-07-22 07:34] LABS: Alanine Aminotransferase 19 U/L (7-40); Albumin 4.6 g/dL (3.2-4.8); Alkaline Phosphatase 88 U/L (46-116); Anion Gap 6 (5-15); Aspartate Aminotransferase 15 U/L (13-40); BUN/Creatinine Ratio 8.7 (10.0-20.0); Calcium 10.1 mg/dL (8.7-10.4); Carbon Dioxide 28 mmol/L (20-31); Chloride 105 mmol/L (98-107); Glucose 88 mg/dL (74-106); Potassium 4.6 mmol/L (3.5-5.1); Sodium 139 mmol/L (136-145); Total Protein 7.8 g/dL (5.7-8.2)
[2024-07-22 07:35] LABS: Bilirubin, Total 0.3 mg/dL (0.2-1.0); Blood Urea Nitrogen 8 mg/dL (9-23)
[2024-07-22 08:19] VITALS: BP 116/74; PULSE 79; RESP 16; TEMP 97.9; O2SAT 99
[2024-07-22 08:30] VITALS: PULSE 79; RESP 16; O2SAT 99
[2024-07-22 12:50] VITALS: BP 131/86; PULSE 88; RESP 16; TEMP 98; O2SAT 97
--- NOTE | 2024-07-22 14:03 | DVHINCON2 ---
Date Seen: Jul 22, 2024 Reason for Consultation Bilateral foot rash History of Present Illness Mr. Brooks is a 39-year-old male with past medical history of hypertension, not on any medications, who does not have a PCP, presented to the ER with a chief complaint of bilateral lower extremity rash, swelling and purulent drainage for the past 10 days. Patient recently moved to [facility] in in [place] days back and shares a bathroom with 10 other male individuals. Reports noticing bilateral lower extremity toe rash while showering, patient used some antifungal ointment which did not help him. Associated features include itching, later patient reported that the rash progressed to the ankles bilaterally associated with intense pruritus and started to drain on the dorsal surface of bilateral feet. He denied pain in lower extremity. Patient denies fevers, chills, shortness of breath, chest pain, nausea or vomiting. Past Medical History See H&P Past Surgical History See H&P Family History: Diabetes mellitus G8 MOTHER G8 FATHER Hypertension G8 MOTHER G8 FATHER Allergies: Coded Allergies: Penicillins (Verified Allergy, Unknown, 07/18/24) Current Medications Current Medications Medications (Trade) Dose Ordered Sig/Mikel Route PRN Reason Start Time Stop Time Status Last Admin Pantoprazole Sodium (Protonix) 40 mg DAILY IV 07/23/24 10:00 Vital Signs Vital Signs Date Time Temp Pulse Resp B/P (MAP) Pulse Ox O2 Delivery O2 Flow Rate FiO2 07/22/24 12:50 98.0 88 16 131/86 (101) 97 98.0 07/21/24 20:00 Room Air* 0 21 Physical Exam Dermatological: Skin is dry with mild erythema and some maceration around the wound site No gross deformities noted Mild non-pitting edema present bilaterally Superficial flaking and erythema to dorsal foot spreading up the legs Vascular: Dorsalis pedis and posterior tibial pulses are 1+ bilaterally Capillary refill is under 2 seconds Skin temperature is warm bilaterally Neurologic: Protective sensation is that on the plantar forefoot bilaterally Monofilament testing reveals intact sensation in multiple plantar sites Musculoskeletal: Range of motion at the ankle and MTP joints is within normal limits. Strength is 5/5 in all tested muscle groups. Gait is antalgic due to offloading of the affected limb. Labs/Diagnostic Data Labs Test 07/22/24 06:22 07/20/24 11:53 07/20/24 05:42 07/19/24 12:58 Range/Units White Blood Count 7.4 4.4-10.8 10^3/uL Red Blood Count 5.51 4.5-5.90 10^6/uL Hemoglobin 17.0 13.5-17.5 g/dL Hematocrit 51.0 41.0-53.0 % Mean Corpuscular Volume 92.6 80.0-100.0 fL Mean Corpuscular Hemoglobin 30.8 28.0-32.0 pg Mean Corpuscular Hemoglobin Concent 33.2 32.0-36.0 g/dL Red Cell Distribution Width 13.8 11.8-14.3 % Platelet Count 314 140-450 10^3/uL Mean Platelet Volume 7.9 6.9-10.8 fL Neutrophils (%) (Auto) 48.8 37.0-80.0 % Lymphocytes (%) (Auto) 34.8 10.0-50.0 % Monocytes (%) (Auto) 8.9 0.0-12.0 % Eosinophils (%) (Auto) 6.5 0.0-7.0 % Basophils (%) (Auto) 1.0 0.0-2.0 % Neutrophils # (Auto) 3.6 1.6-8.6 10 ^3/uL Lymphocytes # (Auto) 2.6 0.4-5.4 10 ^3/uL Monocytes # (Auto) 0.7 0-1.3 10 ^3/uL Eosinophils # (Auto) 0.5 0-0.8 10 ^3/uL Basophils # (Auto) 0.1 0-0.2 10 ^3/uL Nucleated Red Blood Cells 0.0 % Sodium Level 139 136-145 mmol/L Potassium Level 4.6 3.5-5.1 mmol/L Chloride Level 105 98-107 mmol/L Carbon Dioxide Level 28 20-31 mmol/L Anion Gap 6 5-15 Blood Urea Nitrogen 8 L 9-23 mg/dL Creatinine 0.92 0.700-1.30 mg/dL Glomerular Filtration Rate Calc 107 >90 mL/min BUN/Creatinine Ratio 8.7 L 10.0-20.0 Serum Glucose 88 74-106 mg/dL Calcium Level 10.1 8.7-10.4 mg/dL Total Bilirubin 0.3 0.2-1.0 mg/dL Aspartate Amino Transferase (AST) 15 13-40 U/L Alanine Aminotransferase (ALT) 19 7-40 U/L Alkaline Phosphatase 88 46-116 U/L Total Protein 7.8 5.7-8.2 g/dL Albumin 4.6 3.2-4.8 g/dL Vancomycin Level Trough 10.5 H 5-10 ug/mL Magnesium Level 2.0 1.6-2.6 mg/dL HIV (1&2) Antibody Negative Negative Complement C3 135 82-167 mg/dL Complement C4 17 12-38 mg/dL Test 07/19/24 09:00 07/19/24 01:26 07/18/24 21:10 07/18/24 17:06 Range/Units Erythrocyte Sedimentation Rate 22 H 0-20 mm/hr C-Reactive Protein High Sensitivity 0.58 <1.0 mg/dL Urine Color Light-yellow Yellow Urine Clarity Clear Clear Urine pH 6.5 5.0-9.0 Urine Specific [place] 1.015 1.001-1.035 Urine Protein Negative Negative Urine Ketones Negative Negative Urine Blood Negative Negative /uL Urine Nitrite Negative Negative Urine Bilirubin Negative Negative Urine Urobilinogen Normal Negative mg/dL Urine Leukocyte Esterase Negative Negative /uL Urine RBC <1 0 - 3 /hpf Urine Microscopic WBC 1 0-3 /HPF Urine Squamous Epithelial Cells Few <5 /hpf Urine Bacteria None seen None Seen /hpf Urine Glucose 2+ H Normal mg/dL Urine Opiates Screen Neg NEGATIVE Urine Fentanyl Screen Neg NEGATIVE Urine Barbiturates Screen Neg NEGATIVE Urine Phencyclidine Screen Neg NEGATIVE Urine Amphetamines Screen Neg NEGATIVE Urine Benzodiazepines Screen Neg NEGATIVE Urine Cocaine Screen Neg NEGATIVE Urine Cannabinoids Screen Neg NEGATIVE Prothrombin Time 10.3 9.3-11.8 sec Prothrombin Time INR 0.97 0.9-1.15 Activated Partial Thromboplast Time 28.7 24.5-34.5 SEC Lactic Acid Level 1.2 0.4-2.0 mmol/L Uric Acid 5.6 3.7-9.2 mg/dL Troponin I High Sensitivity < 3 L </=54 ng/L B-Type Natriuretic Peptide 18.54 0-100 pg/mL Plasma/Serum Blood Alcohol 3.0 <10 mg/dL Anti-Nuclear Antibody Screen Negative Negative Anti-Nuclear Antibody Comment Comment . DESTINY-1 Antibody <0.2 0.0-0.9 AI SS-A/Ro Antibody <0.2 0.0-0.9 AI SS-B/La Antibody <0.2 0.0-0.9 AI Sm Antibody <0.2 0.0-0.9 AI CLIENT CUSTOMER MANAGER Antibody 0.3 0.0-0.9 AI Scl-70 (Scleroderma) Antibody <0.2 0.0-0.9 AI Anti-Double Strand DNA Antibody <1 0-9 IU/mL Chromatin Antibody <0.2 0.0-0.9 AI Centromere B Antibody <0.2 0.0-0.9 AI Hepatitis A IgM Antibody Negative Hepatitis A Antibody Total Positive H Negative Hepatitis B Surface Antigen Negative Negative Hepatitis B Surface Antibody Negative Negative Hepatitis B Core Total Antibody Negative Negative Hepatitis B Core IgM Antibody Negative Negative Hepatitis C Antibody Negative Negative Hemoglobin A1c 5.2 <5.7 % A1C Vitamin B12 Level 387 211-911 pg/mL Vitamin D 25-Hydroxy 27.9 L 30.0-100 ng/mL Thyroid Stimulating Hormone (TSH) 2.70 0.55-4.78 uIU/mL Microbiology Date/Time Source Procedure Growth Status 07/19/24 12:00 Foot Gram Stain - Final Complete 07/19/24 12:00 Wound Culture - Final Staphylococcus aureus Streptococcus Group B Complete 07/18/24 17:06 Blood Blood Culture - Preliminary NO GROWTH AFTER 72 HOURS OF INCUBATION. Resulted Problems(with codes): (1) Bilateral lower leg cellulitis Plan/Recommendation ASSESSMENT: Patient is a 39-year-old seen on the floor for bilateral foot rash PLAN: - The patients chart was reviewed, clinical findings were discussed with the patient, the etiologies of the conditions were discussed in detail, and a treatment plan was agreed to at this time, with both oral and written instructions provided. - reviewed advanced imaging - appears to be superficial rash on dorsal lower extremity as well as in the thighs and arms - discussed likely due to an allergen such as detergents - recommend using topical steroid - can use Benadryl for itchiness - follow up with me 1 week after discharge All questions were answered and concerns addressed to the patient's satisfaction. The patient was given the phone number to the clinic and was told how to make contact with the clinic should any concerns or questions arise. Patient understands that if any questions or concerns arise prior to the next appointment, we should be contacted immediately. FOLLOW-UP: Continue to follow while inpatient Plan discussed with: Patient Date of Service: Jul 22, 2024 Billing Provider: CHRYSTAL VALLADARES DPM Common Visit Codes: CONSULT ONLY Consultation Codes: [id number] CONSULT <80MIN CHRYSTAL VALLADARES DPM Jul 22, 2024 14:03
--- NOTE | 2024-07-22 15:41 | DVHDSRES ---
Discharge Summary Date of Admission Resident Creating Document: ANGEL LINDA RESIDENT Jul 18, 2024 at 20:56 Date of Discharge: Jul 22, 2024 Admitting Diagnosis Bilateral lower extremity cellulitis Labs/Diagnostic Data: Laboratory Results Test 07/22/24 06:22 07/20/24 11:53 07/20/24 05:42 07/19/24 12:58 White Blood Count 7.4 10^3/uL (4.4-10.8) Red Blood Count 5.51 10^6/uL (4.5-5.90) Hemoglobin 17.0 g/dL (13.5-17.5) Hematocrit 51.0 % (41.0-53.0) Mean Corpuscular Volume 92.6 fL (80.0-100.0) Mean Corpuscular Hemoglobin 30.8 pg (28.0-32.0) Mean Corpuscular Hemoglobin Concent 33.2 g/dL (32.0-36.0) Red Cell Distribution Width 13.8 % (11.8-14.3) Platelet Count 314 10^3/uL (140-450) Mean Platelet Volume 7.9 fL (6.9-10.8) Neutrophils (%) (Auto) 48.8 % (37.0-80.0) Lymphocytes (%) (Auto) 34.8 % (10.0-50.0) Monocytes (%) (Auto) 8.9 % (0.0-12.0) Eosinophils (%) (Auto) 6.5 % (0.0-7.0) Basophils (%) (Auto) 1.0 % (0.0-2.0) Neutrophils # (Auto) 3.6 10 ^3/uL (1.6-8.6) Lymphocytes # (Auto) 2.6 10 ^3/uL (0.4-5.4) Monocytes # (Auto) 0.7 10 ^3/uL (0-1.3) Eosinophils # (Auto) 0.5 10 ^3/uL (0-0.8) Basophils # (Auto) 0.1 10 ^3/uL (0-0.2) Nucleated Red Blood Cells 0.0 % Sodium Level 139 mmol/L (136-145) Potassium Level 4.6 mmol/L (3.5-5.1) Chloride Level 105 mmol/L (98-107) Carbon Dioxide Level 28 mmol/L (20-31) Anion Gap 6 (5-15) Blood Urea Nitrogen 8 mg/dL (9-23) Creatinine 0.92 mg/dL (0.700-1.30) Glomerular Filtration Rate Calc 107 mL/min (>90) BUN/Creatinine Ratio 8.7 (10.0-20.0) Serum Glucose 88 mg/dL (74-106) Calcium Level 10.1 mg/dL (8.7-10.4) Total Bilirubin 0.3 mg/dL (0.2-1.0) Aspartate Amino Transferase (AST) 15 U/L (13-40) Alanine Aminotransferase (ALT) 19 U/L (7-40) Alkaline Phosphatase 88 U/L (46-116) Total Protein 7.8 g/dL (5.7-8.2) Albumin 4.6 g/dL (3.2-4.8) Vancomycin Level Trough 10.5 ug/mL (5-10) Magnesium Level 2.0 mg/dL (1.6-2.6) HIV (1&2) Antibody Negative (Negative) Complement C3 135 mg/dL (82-167) Complement C4 17 mg/dL (12-38) Test 07/19/24 09:00 07/19/24 01:26 07/18/24 21:10 07/18/24 17:06 Erythrocyte Sedimentation Rate 22 mm/hr (0-20) C-Reactive Protein High Sensitivity 0.58 mg/dL (<1.0) Urine Color Light-yellow (Yellow) Urine Clarity Clear (Clear) Urine pH 6.5 (5.0-9.0) Urine Specific [place] 1.015 (1.001-1.035) Urine Protein Negative (Negative) Urine Ketones Negative (Negative) Urine Blood Negative /uL (Negative) Urine Nitrite Negative (Negative) Urine Bilirubin Negative (Negative) Urine Urobilinogen Normal mg/dL (Negative) Urine Leukocyte Esterase Negative /uL (Negative) Urine RBC <1 /hpf (0 - 3) Urine Microscopic WBC 1 /HPF (0-3) Urine Squamous Epithelial Cells Few /hpf (<5) Urine Bacteria None seen /hpf (None Seen) Urine Glucose 2+ mg/dL (Normal) Urine Opiates Screen Neg (NEGATIVE) Urine Fentanyl Screen Neg (NEGATIVE) Urine Barbiturates Screen Neg (NEGATIVE) Urine Phencyclidine Screen Neg (NEGATIVE) Urine Amphetamines Screen Neg (NEGATIVE) Urine Benzodiazepines Screen Neg (NEGATIVE) Urine Cocaine Screen Neg (NEGATIVE) Urine Cannabinoids Screen Neg (NEGATIVE) Prothrombin Time 10.3 sec (9.3-11.8) Prothrombin Time INR 0.97 (0.9-1.15) Activated Partial Thromboplast Time 28.7 SEC (24.5-34.5) Lactic Acid Level 1.2 mmol/L (0.4-2.0) Uric Acid 5.6 mg/dL (3.7-9.2) Troponin I High Sensitivity < 3 ng/L (</=54) B-Type Natriuretic Peptide 18.54 pg/mL (0-100) Plasma/Serum Blood Alcohol 3.0 mg/dL (<10) Anti-Nuclear Antibody Screen Negative (Negative) Anti-Nuclear Antibody Comment Comment (.) DESTINY-1 Antibody <0.2 AI (0.0-0.9) SS-A/Ro Antibody <0.2 AI (0.0-0.9) SS-B/La Antibody <0.2 AI (0.0-0.9) Sm Antibody <0.2 AI (0.0-0.9) GAMING TABLE OPERATOR Antibody 0.3 AI (0.0-0.9) Scl-70 (Scleroderma) Antibody <0.2 AI (0.0-0.9) Anti-Double Strand DNA Antibody <1 IU/mL (0-9) Chromatin Antibody <0.2 AI (0.0-0.9) Centromere B Antibody <0.2 AI (0.0-0.9) Hepatitis A IgM Antibody Negative Hepatitis A Antibody Total Positive (Negative) Hepatitis B Surface Antigen Negative (Negative) Hepatitis B Surface Antibody Negative (Negative) Hepatitis B Core Total Antibody Negative (Negative) Hepatitis B Core IgM Antibody Negative (Negative) Hepatitis C Antibody Negative (Negative) Hemoglobin A1c 5.2 % A1C (<5.7) Vitamin B12 Level 387 pg/mL (211-911) Vitamin D 25-Hydroxy 27.9 ng/mL (30.0-100) Thyroid Stimulating Hormone (TSH) 2.70 uIU/mL (0.55-4.78) Other Laboratory Tests 07/22/24 06:22 Brief Hx & Hospital Course: Mr. Brooks is a 39-year-old male with past medical history of hypertension, not on any medications, who does not have a PCP, presented to the ER with a chief complaint of bilateral lower extremity rash, swelling and purulent drainage for the past 10 days. Patient recently moved to [facility] [place] in [place] back and shares a bathroom with 10 other male individuals. Reports noticing bilateral lower extremity toe rash while showering, patient used some antifungal ointment which did not help him. Associated features include itching, later patient reported that the rash progressed to the ankles bilaterally associated with intense pruritus and started to drain on the dorsal surface of bilateral feet. He denied pain in lower extremity. Patient denies fevers, chills, shortness of breath, chest pain, nausea or vomiting. Hospital course-Mr. Brooks is a 39-year-old male with past medical history of hypertension, not on any medications, who does not have a PCP, presented to the ER with a chief complaint of bilateral lower extremity rash, swelling and purulent drainage for the past 10 days. Patient recently moved to [facility] [place] in in back and shares a bathroom with 10 other male individuals. Reports noticing bilateral lower extremity toe rash while showering, patient used some antifungal ointment which did not help him. Associated features include itching, later patient reported that the rash progressed to the ankles bilaterally associated with intense pruritus and started to drain on the dorsal surface of bilateral feet. He denied pain in lower extremity. Patient denies fevers, chills, shortness of breath, chest pain, nausea or vomiting. Bilateral lower extremity Doppler was negative for DVT, arterial Doppler for bilateral lower extremity negative for any significant arterial stenosis, foot x-ray negative for any acute osteomyelitis or fracture, liver ultrasound negative for any cirrhosis of liver or acute cholecystitis. Patient was treated conservatively with IV antibiotic cefepime and vancomycin, patient was seen by fruit picker Dr. davis, recommended for outpatient follow up, no acute intervention noted. Is being discharged home with Augmentin 875 mg p.o. b.i.d. for 10 days. Patient was advised to follow up with the primary care physician in 1 week and also to follow up with the fruit picker Dr. Prabhakar in 1-2 weeks. Assessment Bilateral LE celluliltis Rash likely due to contact dermatitis Ruled out acute vasculitis Chronic Alcoholic dependence Hypertension-diet control Nicotine dependence Vitamin-D deficiency Discharge plan Augmentin 875 mg p.o. b.i.d. for 10 days Thiamine 100 mg p.o. daily Folic acid 1 mg p.o. daily Benadryl 50 mg PRN for 7 days Low-salt diet Please follow up with the primary care physician in 1 week follow up with the fruit picker Dr. Prabhakar in 1-2 weeks. Operations or Procedures [place] [id number] Ph: [phone] DIAGNOSTIC IMAGING Diagnostic Imaging Report : [id number] Signed PATIENT: MEGGAN BROOKS I ACCT: [id number] UNIT: [id number] : 1985 LOC: OVERFLOW ROOM / BED: 100-ER / A AGE / SEX: 39 / M ADM STATUS: ADM IN SERVICE 20 ORDERING PHYSICIAN: MELLISSA MANRIQUEZ PROCEDURE(s): LFOOT - L FOOT 3 VIEW XRAY REASON: Cellulitis ORDER NUMBER(s): [id number], ACCESSION NUMBER(s): [id number] EXAM: XY L FOOT 3 VIEW XRAY, XY R FOOT 3 VIEW XRAY HISTORY: Cellulitis COMPARISON: None TECHNIQUE: Multiple views of the bilateral feet. Findings/ IMPRESSION: No acute fracture or dislocation. Mild diffuse soft tissue edema. Left foot demonstrates a small inferior calcaneal enthesophyte. No radiopaque foreign objects. No significant degenerative changes. ATED BY: OLRI WHIPPLE DO DICTATED DATE/TIME: 07/18/242225 SIGNED BY: LORI WHIPPLE DO SIGNED DATE/TIME: 07/18/242225 CC: [place] [id number] Ph: [phone] DIAGNOSTIC IMAGING Diagnostic Imaging Report : [id number] Signed PATIENT: MEGGAN BROOKS I ACCT: [id number] UNIT: [id number] : 1985 LOC: OVERFLOW ROOM / BED: [facility] / A AGE / SEX: 39 / M ADM STATUS: ADM IN SERVICE 20 ORDERING PHYSICIAN: MELLISSA MANRIQUEZ PROCEDURE(s): RFOOT - R FOOT 3 VIEW XRAY REASON: Cellulitis ORDER NUMBER(s): [id number], ACCESSION NUMBER(s): [id number] EXAM: XY R FOOT 3 VIEW XRAY HISTORY: Cellulitis COMPARISON: None TECHNIQUE: Three views of the right foot were performed. FINDINGS: No acute fracture or dislocation are identified about the right foot. No significant degenerative changes. There soft tissue swelling involving the forefoot IMPRESSION: 1. Unremarkable radiographs of the right foot. Swelling. ATED BY: TEX NEIL MD DICTATED DATE/TIME: 07/18/242227 SIGNED BY: TEX NEIL MD SIGNED DATE/TIME: 07/18/242227 CC: [place] [id number] Ph: [phone] DIAGNOSTIC IMAGING Diagnostic Imaging Report : [id number] Signed PATIENT: MEGGAN BROOKS ACCT: [id number] UNIT: [id number] : 1985 LOC: ER ROOM / BED: / AGE / SEX: 39 / M ADM STATUS: REG ER SERVICE 164 ORDERING PHYSICIAN: TABATHA MARSHALL DO PROCEDURE(s): BLDVT - BiLat Lower DVT REASON: Redness swelling ORDER NUMBER(s): [id number], ACCESSION NUMBER(s): [id number] BILATERAL LOWER EXTREMITY VENOUS DOPPLER ULTRASOUND CLINICAL HISTORY: Redness swelling TECHNIQUE: Grayscale ultrasound with compression, color Doppler flow imaging with pulsed duplex sonography of the bilateral lower extremity deep venous system from the common femoral veins through the popliteal veins is performed. COMPARISON: None FINDINGS: Right common femoral vein: Negative. Right greater saphenous vein: Negative. Right deep femoral vein: Negative. Right femoral vein: Negative. Right popliteal vein: Negative. Left common femoral vein: Negative. Left greater saphenous vein: Negative. Left deep femoral vein: Negative. Left femoral vein: Negative. Left popliteal vein: Negative. Other: Visualized bilateral popliteal trifurcation and posterior tibial veins demonstrate color flow. Enlarged bilateral inguinal lymph nodes noted. IMPRESSION: No sonographic evidence of deep venous thrombosis in either lower extremity at this time. Inguinal adenopathy. ATED BY: CHAS INMAN MD DICTATED DATE/TIME: 07/18/241920 SIGNED BY: CHAS INMAN MD SIGNED DATE/TIME: 07/18/241920 CC: [address] [id number] Ph: [phone] DIAGNOSTIC IMAGING Diagnostic Imaging Report : [id number] Signed PATIENT: MEGGAN BROOKS I ACCT: [id number] UNIT: [id number] : 1985 LOC: ER ROOM / BED: / AGE / SEX: 39 / M ADM STATUS: REG ER SERVICE 55 ORDERING PHYSICIAN: RADHA CARTER RESIDENT PROCEDURE(s): BLEAD - BiLat Low Ext Art Duplex REASON: PAD? ORDER NUMBER(s): [id number], ACCESSION NUMBER(s): [id number] BILATERAL LOWER EXTREMITY ARTERIAL VASCULAR ULTRASOUND CLINICAL HISTORY: Discoloration and wounds. Evaluate for PAD. COMPARISON: None TECHNIQUE: Real-time high-resolution grayscale and color Doppler flow imaging with pulsed duplex sonography is performed in the lower extremity arterial system with imaging of the femoral-popliteal system and interrogation of the dorsalis pedis and posterior tibial arteries at the level of the ankle. FINDINGS: Imaging of the right leg shows no significant atherosclerotic disease and no hemodynamically significant stenosis. Peak systolic flow velocities and wave forms are satisfactory throughout the interrogated segments. Imaging of the left leg shows no significant atherosclerotic disease and no hemodynamically significant stenosis. Peak systolic flow velocities and wave forms are satisfactory throughout the interrogated segments. IMPRESSION: No hemodynamically significant stenoses or occlusions identified. ATED BY: CHAS INMAN MD DICTATED DATE/TIME: 07/18/242148 SIGNED BY: CHAS INMAN MD SIGNED DATE/TIME: 07/18/242148 CC: [address] [address] Ph: [phone] DIAGNOSTIC IMAGING Diagnostic Imaging Report : [id number] Signed PATIENT: MEGGAN BROOKS I ACCT: [id number] UNIT: [id number] : 1985 LOC: OVERFLOW ROOM / BED: 1009-ER / A AGE / SEX: 39 / M ADM STATUS: ADM IN SERVICE 55 ORDERING PHYSICIAN: RADHA CARTER RESIDENT PROCEDURE(s): LIVUS - LIVER REASON: ?alcoholic ORDER NUMBER(s): [id number], ACCESSION NUMBER(s): [id number] INDICATION: alcoholic TECHNIQUE: Multiple real-time sonographic images were obtained of the right upper quadrant. COMPARISON: None FINDINGS: The liver demonstrates homogenous echotexture without focal mass lesions. The liver measures 14cm. There is no intrahepatic or extrahepatic ductal dilatation. The common duct measures 0.5 mm. The gallbladder is without evidence of stone or sludge. The gallbladder wall measures 0.3 mm and is within normal limits. The right kidney measures 14 cm. The right kidney is normal in contour, size, and shape. The echogenicity is normal. There is no hydronephrosis. The pancreas is not well visualized due to overlying bowel gas. IMPRESSION: No sonographic evidence of gallstones or acute cholecystitis. ATED BY: LORI WHIPPLE DO DICTATED DATE/TIME: 07/18/242200 SIGNED BY: LORI WHIPPLE DO SIGNED DATE/TIME: 07/18/242200 CC: Condition at Discharge: Stable Final Diagnosis/Problems List Bilateral LE celluliltis Rash likely due to contact dermatitis Ruled out acute vasculitis/DVT Chronic Alcoholic dependence Hypertension Nicotine dependence Vitamin-D deficiency Discharge Disposition: Home Discharge Instruct/Medications Diet: Regular, Cardiac 2g Na,low cholest Follow Up/Referral: Low-salt diet Please follow up with the primary care physician in 1 week Medications: Augmentin 875 mg p.o. b.i.d. for 10 days Thiamine 100 mg p.o. daily Folic acid 1 mg p.o. daily Benadryl 50 mg PRN for 7 days Low-salt diet Please follow up with the primary care physician in 1 week Discharge Statement: "Patient was advised to return to the ER or call 911 if any headaches, dizziness, shortness of breath, chest pain, abdominal pain, bleeding, fevers, or worsening of medical condition. Patient was counseled about treatment plan, medications, possible side effects, patientverbalized understanding. All questions were answered to the best of my ability. This discharge took greater then 30 minutes in planning, reviewing documentation, counseling the patient, and discussing with other team members." ASSESSMENT ASSESSMENT Assessment ANGEL LINDA RESIDENT Jul 22, 2024 15:40
[2024-07-22] MEDS ORDERED: FOLI-119 PO (15:46)
[2024-07-22] MEDS ORDERED: THIA100T10 PO (15:46)
[2024-07-22] MEDS ORDERED: AMOX875T4 PO (15:46)
[2024-07-22] MEDS ORDERED: DIPH25CA66 PO ×2 (15:46)
[2024-07-22 16:53] VITALS: BP 146/94; PULSE 79; RESP 16; TEMP 98; O2SAT 98
[2024-07-23] MEDS ORDERED: PANTOPRAZOLE 40 MG/10 ML VIAL INJ IV SCH (10:00)
== END 2024-07-22 17:30 | disposition home or self-care (01) | DRG 383 ==
LOC: ER 16:51 → OVERFLOW 20:56 → WEST WING 07-19 04:15
PROVIDERS: ADMIT Student in an Organized Health Care Education/Training Program; ATTEND Student in an Organized Health Care Education/Training Program
DX: L03.115 Cellulitis of right lower limb (principal); E55.9 Vitamin D deficiency, unspecified; L03.116 Cellulitis of left lower limb; I10 Essential (primary) hypertension; L29.89 Other pruritus; F10.20 Alcohol dependence, uncomplicated; L25.9 Unspecified contact dermatitis, unspecified cause; Z83.3 Family history of diabetes mellitus; Z82.49 Family history of ischemic heart disease and other diseases of the circulatory system; Z88.0 Allergy status to penicillin; Z79.899 Other long term (current) drug therapy; Y90.0 Blood alcohol level of less than 20 mg/100 ml
CPT/HCPCS: 36415; 73630; 76705; 80048; 80053; 80074; 80202; 80307; 80320; 81001; 82306; 82565; 82607; 83036; 83516; 83605; 83735; 83880; 84443; 84484; 84550; 85025; 85610; 85652; 85730; 86038; 86141; 86160; 86225; 86235; 86703; 86704; 86706; 86708; 86803; 87040; 87077; 87081; 87186; 87205; 87340; 93925; 93970; 96365; 96375; G0378; J2470; J3490